=== PATIENT | male | born 1960 | race Caucasian/White ===

== ENCOUNTER 2023-05-23 21:07 | Emergency (ER) | payer OTHER, SELFPAY ==
[2023-05-23 21:25] VITALS: BP 121/76; PULSE 118; RESP 16; TEMP 37.6; O2SAT 96; BMI 26.6
[2023-05-23 21:29] VITALS: PULSE 118; RESP 16; TEMP 37.6; O2SAT 96
--- NOTE | 2023-05-23 21:33 | ED_ITS ---
HPI - General Adult General Date Seen: 05/23/23 Chief complaint: Fever Stated complaint: had a procedure at [place]-has a fever Time Seen by Provider: 05/23/23 21:09 Source: patient Mode of arrival: ambulatory Limitations: no limitations History of Present Illness HPI narrative: Patient is a 63-year-old male who has had multiple appointments recently at [facility] for BPH, urinary retention, teaching visits for self catheterization. At some point near future he needs to have his prostate removed. He was found to have a creatinine of 6.1 and 1900 mL in his bladder. He has recently been taught to self-catheterize and is doing that 4-6 times per day. Interestingly he has not been put on any antibiotics at any point in the past two weeks despite a cystoscopy and now self catheterization. He developed a fever today up to 100.5. He spoke with his urology team they suggested he come to the emergency department. He has been eating and drinking normally. He denies nausea or vomiting. He has no abdominal pain. His creatinine apparently had normalized prior to discharge from [facility]. His local primary is Dr. Mcnamara. Related Data Home Medications Medication Instructions Recorded Confirmed tamsulosin 0.4 mg capsule 0.4 mg PO DAILY 05/23/23 05/23/23 Previous Rx's Medication Instructions Recorded ciprofloxacin HCl 500 mg tablet 500 mg PO BID #14 tabs 05/23/23 Allergies Allergy/AdvReac Type Severity Reaction Status Date / Time tetracycline Allergy Mild Rash Verified 05/23/23 21:25 Review of Systems Narrative: Review of systems is outlined above otherwise noted to be negative. [facility] Medical History (Updated 05/23/23 @ 23:10 by Yoel Jauregui MD) Primary hypertension ?I10 - Essential (primary) hypertension (ICD-10) Acute renal failure ?N17.9 - Acute kidney failure, unspecified (ICD-10) History of melanoma ?Z85.820 - Personal history of malignant melanoma of skin (ICD-10) Mixed hyperlipidemia ?E78.2 - Mixed hyperlipidemia (ICD-10) Elevated PSA ?R97.20 - Elevated prostate specific antigen [PSA] (ICD-10) BPH with urinary obstruction ?N40.1 - Benign prostatic hyperplasia with lower urinary tract symptoms (ICD- 10) ?N13.8 - Other obstructive and reflux uropathy (ICD-10) Surgical History (Updated 05/23/23 @ 21:51 by Yoel Jauregui MD) History of corrected hypospadias ?Z87.710 - Personal history of (corrected) hypospadias (ICD-10) Social History Smoking Status: Never smoker Non-prescribed substance use: denies use Exam Narrative: Exam Narrative: Vitals noted. Lungs: Clear to auscultation in all [place]. No wheezes, rales, rhonchi. Heart: Regular rate and rhythm without murmur. Abdomen: Soft and nontender. No guarding, rigidity, rebound. Bowel sounds are normal. No palpable masses. No CVA tenderness. Extremities: No cyanosis or edema. Good distal pulses. Skin: No abnormalities noted of the exposed skin. Neurologic: Awake, alert, fully oriented. Neurologic exam is nonfocal. Const: Vital Signs, click to edit/add: Vital Signs - 24 hr 05/23/23 21:25 05/23/23 21:29 05/23/23 23:20 Temperature 99.7 F H 99.7 F H 98.9 F Pulse Rate [Pulse Oximeter] 118 H 116 H Pulse Rate [Right] 118 H Respiratory Rate 16 16 16 Blood Pressure [Ri ght Upper Arm] 121/76 118/79 Pulse Oximetry 96 96 95 Oxygen Delivery Me thod Room Air Room Air Course Course ED Course: Patient seen and examined. CBC, lactate, BMP, UA UC are collected. Blood culture x2 is taken. Rocephin 1 g IV is given. Reevaluation(s) Reevaluation #1: [place] [address]. Basic metabolic panel shows BUN of 32 and a creatinine of 1.6 which are not far from baseline. Lactate is 1.7. UA shows 25-50 red cells, 50-100 white cells, many bacteria. Rocephin 1 g IV is given. Vital Signs Vital signs: Initial Vital Signs Temperature 99.7 F H 05/23/23 21:25 Temperature Source Temporal Artery Scan 05/23/23 21:25 Pulse Rate 118 H 05/23/23 21:25 Pulse Rhythm Regular 05/23/23 21:25 Respiratory Rate 16 05/23/23 21:25 Blood Pressure 121/76 05/23/23 21:25 Blood Pressure Mean 91 05/23/23 21:25 Blood Pressure Position Sitting 05/23/23 21:25 Pulse Oximetry 96 05/23/23 21:25 Oxygen Delivery Method Room Air 05/23/23 21:25 Vital Signs Temperature 99.7 F H 05/23/23 21:25 Pulse Rate 118 H 05/23/23 21:25 Respiratory Rate 16 05/23/23 21:25 Blood Pressure 121/76 05/23/23 21:25 Pulse Oximetry 96 05/23/23 21:25 Oxygen Delivery Method Room Air 05/23/23 21:25 Temperature 98.9 F 05/23/23 23:20 Pulse Rate 116 H 05/23/23 23:20 Respiratory Rate 16 05/23/23 23:20 Blood Pressure 118/79 05/23/23 23:20 Pulse Oximetry 95 05/23/23 23:20 Oxygen Delivery Method Room Air 05/23/23 21:29 Medical Decision Making Lab Data Labs: Lab Results 05/23/23 05/23/23 05/23/23 Range/Units 21:31 21:40 22:00 WBC 26.35 H* (4.50-11.00) K/uL RBC 5.32 (4.30-5.90) m/uL Hgb 15.6 (13.5-17.5) gm/dL Hct 46.1 (37.0-53.0) % MCV 87 (80-100) fL MCH 29 (26-34) pg MCHC 34 (32-36) gm/dL RDW Coeff of Neto 12.9 (11.5-15.5) % Plt Count 278 (140-440) K/uL Neut % (Auto) 87.4 H (42.0-72.0) % Lymph % (Auto) 2.8 L (20-44) % [place] % (Auto) 9.0 (0.0-11.0) % Eos % (Auto) 0.0 (0.0-7.0) % Baso % (Auto) 0.2 (0.0-3.0) % Neut # (Auto) 23.00 H (1.7-7.0) K/uL Lymph # (Auto) 0.70 L (0.90-2.90) K/uL [place] # (Auto) 2.40 H (0.00-0.90) K/UL Eos # (Auto) 0.00 (0.00-0.50) K/uL Baso # (Auto) 0.10 (0.00-0.30) K/uL Abs Immat Gran (auto) 0.20 (0.00-0.30) K/uL Imm/Tot Granulo (auto) 0.6 % Diff Slide Review Acceptable Review (Acceptable) Sodium 134 L (135-149) mmol/L Potassium 3.6 (3.6-5.1) mmol/L Chloride 101 (96-114) mmol/L Carbon Dioxide 20 (20-32) mmol/L Anion Gap 13 (7-15) mEq/L BUN 32 H (7-30) mg/dL Creatinine 1.6 H (0.5-1.5) mg/dL Estimated Creat Clear 43.03 Estimated GFR 48 ml/min Glucose 115 (60-115) mg/dL Lactate 1.7 (0.5-1.9) mmol/L Calcium 9.3 (8.4-10.6) mg/dL Urine Color Yellow (Yellow) Urine Appearance Clear (Clear) Urine pH 5.5 (5.0-8.5) Ur Specific [place] 1.010 (1.000-1.030) Urine Protein Trace A (Negative) Urine Glucose (UA) Negative (Negative) Urine Ketones Negative (Negative) Urine Blood 3+ A (Negative) Urine Nitrite Negative (Negative) Urine Bilirubin Negative (Negative) Urine Urobilinogen 0.2 (0.2-1.0) Ur Leukocyte Esterase 3+ A (Negative) Urine RBC 25-50 A (0-2) Urine WBC 50-100 A (0-5) Ur Squamous Epith Cells None (None-Few) Urine Bacteria Many A (None) SARS-CoV-2 (PCR) Negative SARS-CoV-2 (Negative) Influenza Type A (PCR) Negative PCR FLU A (Negative) Influenza Type B (PCR) Negative PCR FLU B (Negative) RSV (PCR) Negative PCR RSV (Negative) Discharge Plan Discharge Clinical Impression: Urinary tract infection associated with catheterization of urinary tract Patient Disposition: Home, Self-Care Condition: Improved Additional Instructions: Push fluids, continue to catheterize herself every 4 hours. Tylenol every 6 hours for fever. Return to the emergency department if fevers persist for more than 48 hours. Start Cipro 500 mg twice daily for seven days. Prescriptions: New ciprofloxacin HCl 500 mg tablet 500 mg PO BID Qty: 14 0RF No Action tamsulosin 0.4 mg capsule 0.4 mg PO DAILY Follow Up/Referrals: Provider,Not a Local [Primary Care Provider] - Oxana Mcnamara MD [Staff Physician] - Stand Alone Forms: Wallit Info Instructions Discharge Comment: CC: [facility]
[2023-05-23 21:56] LABS: Appearance Urine Clear (Clear); Bilirubin Urine Negative (Negative); Blood Urine 3+ (Negative); Color Urine Yellow (Yellow); Glucose Urine Negative (Negative); Ketones Urine Negative (Negative); Leukocyte Esterase Urine 3+ (Negative); Nitrite Urine Negative (Negative); Protein Urine Trace (Negative); Urobilinogen Urine 0.2 (0.2-1.0); pH Urine 5.5 (5.0-8.5)
[2023-05-23 22:14] LABS: Lactate* 1.7 mmol/L (0.5-1.9)
[2023-05-23 22:17] LABS: RBC Urine 25-50 (0-2); WBC Urine 50-100 (0-5)
[2023-05-23 22:18] LABS: Bacteria Urine Many
[2023-05-23 22:24] LABS: Chloride* 101 mmol/L (96-114); Potassium* 3.6 mmol/L (3.6-5.1); Sodium* 134 mmol/L (135-149)
[2023-05-23 22:27] LABS: Anion Gap 13 mEq/L (7-15); Blood Urea Nitrogen* 32 mg/dL (7-30); Carbon Dioxide* 20 mmol/L (20-32); Creatinine* 1.6 mg/dL (0.5-1.5); Est. Creatinine Clearance* 43.03; Estimated Glomerular Filt Rate 48 ml/min
[2023-05-23 22:27] LABS: PCR FLU A Negative PCR FLU A (Negative); PCR FLU B Negative PCR FLU B (Negative); PCR RSV Negative PCR RSV (Negative)
[2023-05-23 22:28] LABS: Calcium* 9.3 mg/dL (8.4-10.6); Glucose* 115 mg/dL (60-115)
[2023-05-23 22:29] LABS: SARS PCR* Negative SARS-CoV-2 (Negative)
[2023-05-23] MEDS: cefTRIAXone 1 GM in 0.9 % SODIUM CHLORIDE Mini-bag 100 ML IVPB (22:29)
[2023-05-23 22:57] LABS: Basophils Percent Auto 0.2 % (0.0-3.0); Hematocrit 46.1 % (37.0-53.0); Hemoglobin* 15.6 gm/dL (13.5-17.5); Immature Granulocytes Pct Auto 0.6 %; Lymphocytes Percent Auto 2.8 % (20-44); Mean Corpuscular HGB Conc 34 gm/dL (32-36); Mean Corpuscular Hemoglobin 29 pg (26-34); Mean Corpuscular Volume 87 fL (80-100); Neutrophils Percent Auto 87.4 % (42.0-72.0); Platelet Count* 278 K/uL (140-440); RDW Coefficient of Variation % 12.9 % (11.5-15.5); Red Blood Count 5.32 m/uL (4.30-5.90)
[2023-05-23 23:01] LABS: Slide Review Reflex Yes
[2023-05-23 23:02] LABS: White Blood Count* 26.35 K/uL (4.50-11.00)
--- NOTE | 2023-05-23 23:04 | ED.NURSE ---
wbc elevated critical, MD Jauregui updated.
[2023-05-23 23:19] LABS: Slide Review Acceptable Review (Acceptable)
[2023-05-23 23:20] VITALS: BP 118/79; PULSE 116; RESP 16; TEMP 37.2; O2SAT 95
== END 2023-05-23 23:21 | disposition home or self-care (01) ==
PROVIDERS: Emergency Provider Family Medicine
DX: N39.0 Urinary tract infection, site not specified (principal)
CPT/HCPCS: 36415; 80048; 81003; 81015; 83605; 85025; 87040; 87086; 87186; 87631; 96365; 99282; 99283; J0696